=== PATIENT | male | born 1980 | race Caucasian/White ===

== ENCOUNTER 2024-12-11 05:20 | Day surgery (SDC) | payer OTHER, SELFPAY ==
[2024-11-30 09:23] VITALS: BMI 30.2
--- OUTSIDE RECORDS SUMMARY | 2024-12-11 05:23 | XMS_ITS | Referral Summary ---
Author Organization [address] Address [address] [place] [id number] Care Team Providers Care Nursing Unit Clerk Name Role Phone Unknown, Notinfile Primary Care Provider Unavail able Encounters Date Type Department Care Team Description 12/07/2024 Orders Only [facility] Sports Medicine and Primary Care at [address] [phone] Zia Rosas DO Left shoulder pain, unspecified chronicity (Primary Dx); Rotator cuff impingement syndrome of left shoulder 12/07/2024 1:20 PM TAPERING MACHINE OPERATOR Ancillary Procedure [facility] Imaging at [address] [phone] Left shoulder pain, unspecified chronicity 12/07/2024 1:15 PM TAPERING MACHINE OPERATOR Office Visit [facility] Sports Medicine and Primary Care at [address] [phone] Zia Rosas DO Left shoulder pain, unspecified chronicity (Primary Dx); Rotator cuff impingement syndrome of left shoulder from Last 3 Months Allergies No known active allergies Medications fenofibrate (TRIGLIDE) 160 mg tablet 12/23/2017 Active clomiPHENE (CLOMID) 50 mg tablet TK 1/2 T PO D 3 12/19/2017 Active atorvastatin (LIPITOR) 20 mg tablet 12/23/2017 Active celecoxib (CeleBREX) 200 mg capsule Take 1 capsule (200 mg total) by mouth daily for 21 days 21 capsule 12/07/2024 Active Active Problems No known active problems Social History Tobacco Use Types Packs/Day Years Used Date Smoking Tobacco: Never Smokeless Tobacco: Never Alcohol Use Standard Drinks/Week Comments No 0 (1 standard drink = 0.6 oz pur e alcohol) Sex and Gender Information Value Date Recorded Sex Assigned at Not on file Legal Sex Male 8:17 AM CDT Gender Identity Not on file Sexual Orientation Not on file Last Filed Vital Signs Vital Sign Reading Time Taken Comments Blood Pressure 154/100 12/07/2024 1:36 PM TAPERING MACHINE OPERATOR Pulse 87 12/07/2024 1:36 PM TAPERING MACHINE OPERATOR Temperature 36.9 C (98.4 F) 09/04/2024 2:34 PM TAPERING MACHINE OPERATOR Respiratory Rate 20 09/04/2024 2:34 PM TAPERING MACHINE OPERATOR Oxygen Saturation 98% 09/04/2024 2:34 PM TAPERING MACHINE OPERATOR Inhaled Oxygen Concentration - - Weight 94.8 kg (209 lb) 12/07/2024 1:36 PM TAPERING MACHINE OPERATOR Height 172.7 cm (5' 8 ) 12/07/2024 1:36 PM TAPERING MACHINE OPERATOR Body Mass Index 31.78 12/07/2024 1:36 PM TAPERING MACHINE OPERATOR Plan of Treatment Not on file Procedures Procedure Name Priority Date/Time Associated Diagnosis Comments XR SHOULDER LEFT 2 OR MORE VIEWS Routine 12/07/2024 1:23 PM TAPERING MACHINE OPERATOR Left shoulder pain, unspecified chronicity from Last 3 Months Results * XR Shoulder Left 2 or More Views (12/07/2024 1:23 PM TAPERING MACHINE OPERATOR) Anatomical Region Laterality Modality Upper Extremities, Shoulder Left Digi sophie Radiography 12/10/2024 4:42 PM TAPERING MACHINE OPERATOR Narrative 12/10/2024 4:43 PM TAPERING MACHINE OPERATOR EXAM DESCRIPTION: XR SHOULDER LEFT 2 OR MORE VIEWS REASON FOR STUDY: pain Pt complains of left shoulder pain for about a month. FINDINGS: Four views submitted without comparison. No acute fracture. Alignment is normal. The glenohumeral joint is normal. There is mild acromioclavicular joint osteoarthritis. IMPRESSION: Mild left acromioclavicular joint osteoarthritis. THIS IS AN ELECTRONICALLY VERIFIED FINAL REPORT 12/10/2024 4:43 PM - Electronically signed by Zia Willis M.D. T: Report ID: [id number] Reading Location: [id number] Procedure Note Zia Willis MD - 12/10/2024 EXAM DESCRIPTION: XR SHOULDER LEFT 2 OR MORE VIEWS REASON FOR STUDY: pain Pt complains of left shoulder pain for about a month. FINDINGS: Four views submitted without comparison. No acute fracture. Alignment is normal. The glenohumeral joint isnormal. There is mild acromioclavicular joint osteoarthritis. IMPRESSION: Mild left acromioclavicular joint osteoarthritis. THIS IS AN ELECTRONICALLY VERIFIED FINAL REPORT 12/10/2024 4:43 PM - Electronically signed by Zia Willis M.D. T: Report ID: [id number] Reading Location: [id number] Zia Rosas DO IMG XR PROCEDURES Leena l Result from Last 3 Months Insurance [facility] Care Teams Nursing Unit Clerk Relationship Specialty Start Date End Date Unknown, Notinfile PCP - General 01/21/18
--- OUTSIDE RECORDS SUMMARY | 2024-12-11 05:23 | XMS_ITS | Clinical Summary ---
Author Organization [address] Address [address] [place] [phone] Care Team Providers Care Senior Security Architect Name Role Phone Unknown, Notinfile Primary Care Provider Unavail able Allergies No known active allergies Medications fenofibrate (TRIGLIDE) 160 mg tablet 12/23/2017 Active clomiPHENE (CLOMID) 50 mg tablet TK 10/22 T PO D 3 12/19/2017 Active atorvastatin (LIPITOR) 20 mg tablet 12/23/2017 Active celecoxib (CeleBREX) 200 mg capsule Take 1 capsule (200 mg total) by mouth daily for 21 days 21 capsule 12/07/2024 5 Active Active Problems No known active problems Encounters Date Type Department Care Team Description 12/07/2024 1:20 PM PAINT LINE SUPERVISOR Ancillary Procedure [facility] Imaging at [address] [phone] Left shoulder pain, unspecified chronicity 12/07/2024 1:15 PM PAINT LINE SUPERVISOR Office Visit [facility] Sports Medicine and Primary Care at [address] [phone] Zia Rosas DO Left shoulder pain, unspecified chronicity (Primary Dx); Rotator cuff impingement syndrome of left shoulder 12/07/2024 Orders Only [facility] Sports Medicine and Primary Care at [address] [phone] Zia Rosas DO Left shoulder pain, unspecified chronicity (Primary Dx); Rotator cuff impingement syndrome of left shoulder from Last 3 Months Social History Tobacco Use Types Packs/Day Years Used Date Smoking Tobacco: Never Smokeless Tobacco: Never Alcohol Use Standard Drinks/Week Comments No 0 (1 standard drink = 0.6 oz pur e alcohol) Sex and Gender Information Value Date Recorded Sex Assigned at Not on file Legal Sex Male 8:17 AM CDT Gender Identity Not on file Sexual Orientation Not on file Obstetrics History Last Filed Vital Signs Vital Sign Reading Time Taken Comments Blood Pressure 154/100 12/07/2024 1:36 PM PAINT LINE SUPERVISOR Pulse 87 12/07/2024 1:36 PM PAINT LINE SUPERVISOR Temperature 36.9 C (98.4 F) 09/04/2024 2:34 PM PAINT LINE SUPERVISOR Respiratory Rate 20 09/04/2024 2:34 PM PAINT LINE SUPERVISOR Oxygen Saturation 98% 09/04/2024 2:34 PM PAINT LINE SUPERVISOR Inhaled Oxygen Concentration - - Weight 94.8 kg (209 lb) 12/07/2024 1:36 PM PAINT LINE SUPERVISOR Height 172.7 cm (5' 8 ) 12/07/2024 1:36 PM PAINT LINE SUPERVISOR Body Mass Index 31.78 12/07/2024 1:36 PM PAINT LINE SUPERVISOR Plan of Treatment Health Maintenance Due Date Last Done Comments Colon Cancer Screening-Colonoscopy 1978 Depression Screening 1978 Hepatitis C Screening 1978 Hepatitis B Screening 1996 Regular Well Visit/Exam 18-64 1996 Influenza Vaccine (#1) 2024 DTaP/Tdap/Td Vaccine (8 - Td or Tdap) 05/17/2025 05/17/2015, 08/19/2012, 04/12/1994, Additional history exists HPV Vaccines Aged Out No longer eligi ble based on patient's age to complete this topic Pneumococcal vaccine <65 Aged Out No longer eligible based on patient's age to complete this topic Procedures Procedure Name Priority Date/Time Associated Diagnosis Comments XR SHOULDER LEFT 2 OR MORE VIEWS Routine 12/07/2024 1:23 PM PAINT LINE SUPERVISOR Left shoulder pain, unspecified chronicity from Last 3 Months Results * XR Shoulder Left 2 or More Views (12/07/2024 1:23 PM PAINT LINE SUPERVISOR) Anatomical Region Laterality Modality Upper Extremities, Shoulder Left Digi sophie Radiography 12/10/2024 4:42 PM PAINT LINE SUPERVISOR Narrative 12/10/2024 4:43 PM PAINT LINE SUPERVISOR EXAM DESCRIPTION: XR SHOULDER LEFT 2 OR [...] by Zia Willis M.D. T: Report ID: [id number] Reading Location: [id number] Procedure Note Zia Willis MD - 12/10/2024 [...] by Zia Willis M.D. T: Report ID: [id number] Reading Location: [place] [id number] Zia Rosas DO IMG XR PROCEDURES Leena l Result from Last 3 Months Insurance [employer] HMO [facility] HMO Care Teams Senior Security Architect Relationship Specialty Start Date End Date Unknown, Notinfile PCP - General 01/21/18
[2024-12-11 09:10] VITALS: BP 147/94; PULSE 69; RESP 18; TEMP 36.3; O2SAT 99; BMI 30.9
[2024-12-11] MEDS: LACTATED RINGERS 1,000 ML 150 ML IV CONT (09:31)
--- NOTE | 2024-12-11 10:05 | WPDANESEPPF ---
Anes - Initial Pre Proc Eval Procedure: Operation Date: 12/11/24 10:30 Proposed Procedures p Screening Colonoscopy - Hunter Conner MD Date/Time: 12/11/24 10:05 Surgeon: Hunter Conner MD Pre Op Diagnosis: screening for malignant neoplasm of colon Patient Data Age: 44 Gender: M Height: 1.73 m Weight: 92.4 kg Last Vital Signs Temp 97.4 F L 12/11/24 09:10 Pulse 69 12/11/24 09:10 Resp 18 12/11/24 09:10 BP 147/94 H 12/11/24 09:10 Pulse Ox 99 12/11/24 09:10 O2 Del Method Room Air 12/11/24 09:10 Allergies Allergy/AdvReac Type Severity Reaction Status Date / Time pine nuts Allergy Mild Itching Uncoded 12/11/24 09:22 Home Medications ?Medication ?Instructions ?Recorded ?Confirmed ?Type omeprazole magnesium 20 mg 20 mg PO DAILY 07/08/23 12/11/24 History capsule,delayed release cholecalciferol (vitamin D3) 1,250 1,250 mcg PO WEEKLY #14 tabs 01/13/24 12/11/24 Rx mcg (50,000 unit) tablet atorvastatin 20 mg tablet 20 mg PO QHS #90 tabs 09/09/24 12/11/24 Rx fenofibrate micronized 200 mg 200 mg PO DAILY #90 caps 09/09/24 12/11/24 Rx capsule icosapent ethyl 1 gram capsule 2 g (2 x 1 gram) PO BID #360 caps 09/09/24 12/11/24 Rx (Vascepa) tadalafil 5 mg tablet (Cialis) 5 mg PO DAILY 11/30/24 12/11/24 History Patient hx anesthesia problems: none Family hx anesthesia problems: none Results Review: All pre-operative results and documents have been reviewed as part of the pre-operative evaluation. [facility] Past Medical History Medical History Vitamin D deficiency GERD without esophagitis Dyslipidemia Hypogonadism in male Surgical History Surgical History H/O vasectomy (~2015) Family History Family History Other Family history of hypercholesterolemia Social History Social History Social History: Caffeine- daily Smoking status: Never smoker Second hand tobacco smoke exposure: No Alcohol intake: current Drinks per week: 6 Substance use: never Substance use type: does not use Living arrangements: with family Occupation/Education: occupation Gender identity (if verbalized by the patient): Male Spiritual care concerns: No Agree to blood products: Yes Anes - Eval Final PreProcedure Day of Procedure 12/11/24 10:05 Patient weight: overweight Lungs: normal air movement Airway: Mallampati scale class II Neurological: alert and oriented Last oral intake: >/= 8 hours ASA classification: II Emergent: no Anesthetic plan: proceed Anesthesia type and monitoring: general GIVS and standard monitoring Results Review: All pre-operative results and documents have been reviewed as part of the pre-operative evaluation. Hyperlipidemia. Active w crossfit, pickleball, no cp or sob. Informed Consent: The patient's anesthetic plan and its attendant risks and benefits were discussed with the patient/family/POA. Questions were solicited and answers provided to the satisfaction of the patient/family/POA.
--- NOTE | 2024-12-11 10:52 | PM.IMHP ---
H&P: HPI History of Present Illness Date/Time: 12/11/24 10:52 Chief Complaint: Screening colonoscopy Narrative: This is the patient's first colonoscopy. There are no GI symptoms and there is no family history of colorectal cancer. Review of Systems Review of Systems: All systems reviewed & are unremarkable except as noted in HPI and below PMFSH Past Medical History Medical History Vitamin D deficiency GERD without esophagitis Dyslipidemia Hypogonadism in male Surgical History Surgical History H/O vasectomy (~2015) Family History Family History Other Family history of hypercholesterolemia Social History Social History Social History: Caffeine- daily Smoking status: Never smoker Second hand tobacco smoke exposure: No Alcohol intake: current Drinks per week: 6 Substance use: never Substance use type: does not use Living arrangements: with family Occupation/Education: occupation Gender identity (if verbalized by the patient): Male Spiritual care concerns: No Agree to blood products: Yes Meds Home Medications and Allergies Home Medications ?Medication ?Instructions ?Recorded ?Confirmed ?Type omeprazole magnesium 20 mg 20 mg PO DAILY 07/08/23 12/11/24 History capsule,delayed release cholecalciferol (vitamin D3) 1,250 1,250 mcg PO WEEKLY #14 tabs 01/13/24 12/11/24 Rx mcg (50,000 unit) tablet atorvastatin 20 mg tablet 20 mg PO QHS #90 tabs 09/09/24 12/11/24 Rx fenofibrate micronized 200 mg 200 mg PO DAILY #90 caps 09/09/24 12/11/24 Rx capsule icosapent ethyl 1 gram capsule 2 g (2 x 1 gram) PO BID #360 caps 09/09/24 12/11/24 Rx (Vascepa) tadalafil 5 mg tablet (Cialis) 5 mg PO DAILY 11/30/24 12/11/24 History Allergies Allergy/AdvReac Type Severity Reaction Status Date / Time pine nuts Allergy Mild Itching Uncoded 12/11/24 09:22 Vital Signs Vital Signs - 24 hr 12/11/24 09:10 Temperature 97.4 F L Pulse Rate 69 Respiratory Rate 18 Blood Pressure 147/94 H Pulse Oximetry 99 Oxygen Delivery Room Air Exam Const: General: cooperative and healthy appearing Resp: Effort & Inspection: normal respiratory effort and able to speak in complete sentences Auscultation: clear to auscultation bilaterally Cardio: Rate: regular rate Rhythm: regular rhythm GI: Inspection: normal to inspection GI Palp: No No hepatosplenomegaly present Auscultation: normal bowel sounds Rectal Exam: deferred Skin: General skin exam: normal color Psych: Appearance: grossly normal Mental Status: mental status grossly normal Assessment and Plan Assessment and plan (1) Encounter for screening colonoscopy: Code(s): Z12.11 - Encounter for screening for malignant neoplasm of colon Status: Acute Assessment and Plan: The patient is deemed a good candidate for the procedure. Consent signed. Will proceed.
[2024-12-11 11:22] VITALS: BP 126/78; PULSE 66; RESP 20; O2SAT 99
[2024-12-11 11:32] VITALS: BP 123/91; PULSE 58; RESP 18; O2SAT 100
[2024-12-11 11:42] VITALS: BP 120/86; PULSE 52; RESP 18; O2SAT 100
== END 2024-12-11 11:49 | disposition home or self-care (01) ==
PROVIDERS: PCP Family Medicine; Visit Provider Internal Medicine Gastroenterology
PROC: 0DJD8ZZ Inspection of Lower Intestinal Tract, Via Natural or Artificial Opening Endoscopic (ICD-10-PCS; CPT 45378; principal; 2024-12-11 10:30)
DX: Z12.11 Encounter for screening for malignant neoplasm of colon (principal); K64.8 Other hemorrhoids; E55.9 Vitamin D deficiency, unspecified; K21.9 Gastro-esophageal reflux disease without esophagitis; E29.1 Testicular hypofunction; Z98.890 Other specified postprocedural states
CPT/HCPCS: 45378; J2003; J2704; J7120